=== PATIENT | female | born 1990 | race American Indian/Alaskan Native ===

== ENCOUNTER 2017-02-27 00:41 | Emergency (ER) | payer MEDICAID ==
[2017-02-27 02:28] LABS: Alanine Aminotransferase 14 units/L (7-56); Albumin 4.2 g/dL (3.9-5); Albumin/Globulin Ratio 1.2 %; Alkaline Phosphatase 45 units/L (35-129); Anion Gap 18 mmol/L; Bilirubin,Total 0.3 mg/dL (0.1-1.2); Blood Urea Nitrogen 6 mg/dL (7-17); Calcium 8.8 mg/dL (8.4-10.2); Carbon Dioxide 23 mmol/L (22-30); Chloride 96.6 mmol/L (98-107); Glucose 105 mg/dL (65-100); Lipase 29 units/L (13-60); Potassium 3.9 mmol/L (3.6-5.0); Sodium 134 mmol/L (137-145); Total Protein 7.7 g/dL (6.3-8.2)
[2017-02-27 02:43] LABS: Basophils % (Auto) 0.6 % (0.0-1.8); Eosinophils % (Auto) 0.5 % (0.0-4.3); Hematocrit 39.5 % (30.3-42.9); Hemoglobin 13.3 gm/dl (10.1-14.3); Mean Corpuscular HGB Conc 34 % (30-34); Mean Corpuscular Hemoglobin 30 pg (28-32); Mean Corpuscular Volume 88 fl (79-97); Platelet Count 371 K/mm3 (140-440); Red Blood Count 4.51 M/mm3 (3.65-5.03); Red Cell Distribution Width 13.2 % (13.2-15.2)
[2017-02-27 02:52] LABS: Bilirubin,Urine NEG (Negative); Blood,Urine NEG (Negative); Ketones,Urine NEG (Negative); Leukocyte Esterase,Urine NEG (Negative); Mucus,Urine FEW /HPF; Nitrite,Urine NEG (Negative); Protein,Urine <15 mg/dL mg/dL (Negative); Urobilinogen,Urine < 2.0 mg/dL (<2.0)
--- NOTE | 2017-02-27 07:23 | Emergency Department Report ---
HPI - General Chief Complaint: Abdominal Pain Time Seen by Provider: 02/27/17 06:17 - HPI HPI: His is a 26-year-old Afro-[place]ith[place]ian female who presents to the emergency department with a complaint of abdominal pain from the mid to lower abdomen and some radiation to the back that began last night around midnight. It assisted with some nausea but she denies any vomiting, diarrhea, vaginal bleeding, vaginal discharge, dysuria, fever. She has not taken anything for symptoms prior to presentation. Patient states that she possibly could be . She has a past medical history of migraines, hypertension. She does not have a primary care doctor but goes to [facility] for her [facility]. Her last menstrual cycle was January 18. No recent travel or sick contacts at home. ED Past Medical Hx - Past Medical History Previous Medical History?: Yes Hx Hypertension: Yes (x 2 years) Hx Congestive Heart Failure: No Hx Diabetes: No Hx Deep Vein Thrombosis: No Hx Renal Disease: No (Protenuria d/t pre-eclampsia) Hx Sickle Cell Disease: No Hx Headaches / Migraines: Yes (migraines) Hx Seizures: No Hx Asthma: No Hx COPD: No Hx HIV: No - Surgical History Additional Surgical History: - Social History Smoking Status: Unknown if ever smoked - Medications Home Medications: Home Medications Medication Instructions Recorded Confirmed Last Taken Type Labetalol [Normodyne TAB] 100 mg PO BID #60 tablet 02/27/17 Unknown Rx Vit No.130/Iron/FA 1 each PO QDAY #30 tablet 02/27/17 Unknown Rx [ Tablet] ED Review of Systems ROS: Stated complaint: ABDOMINAL PAIN Other details as noted in HPI Comment: All other systems reviewed and negative Constitutional: denies: chills, fever Eyes: denies: eye pain, eye discharge, vision change ENT: denies: ear pain, throat pain Respiratory: denies: cough, shortness of breath, wheezing Cardiovascular: denies: chest pain, palpitations Gastrointestinal: abdominal pain, nausea. denies: vomiting Genitourinary: denies: urgency, dysuria, discharge Musculoskeletal: denies: back pain, joint swelling, arthralgia Skin: denies: rash, lesions Neurological: denies: headache, weakness, paresthesias Physical Exam - Physical Exam Vital Signs: Vital Signs 02/27/17 02/27/17 02/27/17 01:37 06:05 06:53 Temperature 98.3 F 99 F Pulse Rate 87 99 H Respiratory 18 18 18 Rate Blood Pressure 155/101 Blood Pressure 141/102 [Left] O2 Sat by Pulse 100 100 100 Oximetry Physical Exam: GENERAL: The patient is well-developed well-nourished. HEENT: Normocephalic. Atraumatic. Extraocular motions are intact. Patient has moist mucous membranes. Pupils equal reactive to light bilaterally. NECK: Supple. Trachea is midline. CHEST/LUNGS: Clear to auscultation. There is no respiratory distress noted. HEART/CARDIOVASCULAR: Regular. There is no tachycardia. There is no gallop rub or murmur. ABDOMEN: Abdomen is soft. Mild lower quadrant tenderness to palpation. No guarding rebound tenderness. No peritoneal signs with heel strike. Patient has normal bowel sounds. There is no abdominal distention. SKIN: Skin is warm and dry. NEURO: The patient is awake, alert, and oriented. The patient is cooperative. The patient has no focal neurologic deficits. The patient has normal speech. MUSCULOSKELETAL: There is no tenderness or deformity. There is no limitation range of motion. There is no evidence of acute injury. ED Course Vital Signs 02/27/17 02/27/17 02/27/17 01:37 06:05 06:53 Temperature 98.3 F 99 F Pulse Rate 87 99 H Respiratory 18 18 18 Rate Blood Pressure 155/101 Blood Pressure 141/102 [Left] O2 Sat by Pulse 100 100 100 Oximetry ED Medical Decision Making - Lab Data Result diagrams: 02/27/17 01:51 02/27/17 01:51 - Radiology Data Radiology results: report reviewed Transvaginal/ ultrasound shows a viable single intrauterine at about 6 weeks and 3 days. No acute abnormalities. Normal right ovary. Left ovary not visualized. Mild free fluid in the cul-de-sac. - Medical Decision Making 60 female presents to the emergency department with some lower abdominal discomfort and some nausea without vomiting. Patient found out to be . Beta hCG is about 37,000. Ultrasound shows viable intrauterine at about 6 weeks and 3 days. She has some mild hypertension and a history of preeclampsia. Patient stopped her amlodipine and was started on labetalol. She will go on vitamins. She's been told to follow up with [facility] in the next few days. She will return to the ER with any worsening of her symptoms or any acute distress. No signs of current preeclampsia or help syndrome. - Differential Diagnosis , miscarriage, fibroids, UTI Critical Care Time: No Critical care attestation.: If time is entered above; I have spent that time in minutes in the direct care of this critically ill patient, excluding procedure time. ED Disposition Clinical Impression: Qualifiers: Weeks of gestation: less than 8 weeks Qualified Code(s): Z3A.01 - Less than 8 weeks gestation of Hypertension Qualifiers: Hypertension type: essential hypertension Qualified Code(s): I10 - Essential ( primary) hypertension Abdominal pain Qualifiers: Abdominal location: generalized Qualified Code(s): R10.84 - Generalized abdominal pain Disposition: DISCHARGED TO HOME OR SELFCARE Is pt being admited?: No Condition: Stable Instructions: (ED), Abdominal Pain (ED), Hypertension (ED) Additional Instructions: Please follow-up with [facility] in the next few days. Return to the emergency department with any worsening of your symptoms or any acute distress. You can take Tylenol every 4 hours for discomfort, using weight-based dosing, as needed. I have started you on vitamins. Otherwise do not take any medications that are not prescribed by a physician. Stop the amlodipine. I have started you on labetalol for your blood pressure and history of preeclampsia. BHCG level was 37,460 Prescriptions: Labetalol [Normodyne TAB] 100 mg PO BID #60 tablet Vit No.130/Iron/FA [ Tablet] 1 each PO QDAY #30 tablet Referrals: PRIMARY MD KALEY [Primary Care Provider] - 3-5 Days [facility] [Provider Group] - 3-5 Days Time of Disposition: 09:38
--- NOTE | 2017-02-27 07:30 | Ultrasound Report ---
ULTRASOUND OB LESS THAN 14 WEEKS FETUS ULTRASOUND OB TRANSVAGINAL HISTORY: Abdominal pain during . FINDINGS: Transabdominal and transvaginal ultrasound imaging was performed. The uterus measures 10 x 6 x 6 cm. No uterine mass is appreciated. An intrauterine gestational sac containing a yolk sac and pole is identified. Heart rate measures 115 beats per minute. [place]-rump length measures 19.0 mm which correlates with a 6 week, 3 day . No subchorionic hemorrhage is visualized. The right ovary is unremarkable measuring 3.0 x 1.5 x 2.5 cm. The left ovary is not visualized. Mild free fluid is noted in the cul-de-sac. IMPRESSION: Viable, single intrauterine as outlined above. No acute abnormality is appreciated. Normal right ovary. The left ovary is not visualized. Mild free fluid in the cul-de-sac.
--- NOTE | 2017-02-27 07:30 | Ultrasound Report ---
ULTRASOUND OB LESS THAN 14 WEEKS FETUS ULTRASOUND OB TRANSVAGINAL HISTORY: Abdominal pain during . FINDINGS: Transabdominal and transvaginal ultrasound imaging was performed. The uterus measures 10 x 6 x 6 cm. No uterine mass is appreciated. An intrauterine gestational sac containing a yolk sac and pole is identified. Heart rate measures 115 beats per minute. [place]-rump length measures 19.0 mm which correlates with a 6 week, 3 day . No subchorionic hemorrhage is visualized. The right ovary is unremarkable measuring 3.0 x 1.5 x 2.5 cm. The left ovary is not visualized. Mild free fluid is noted in the cul-de-sac. IMPRESSION: Viable, single intrauterine as outlined above. No acute abnormality is appreciated. Normal right ovary. The left ovary is not visualized. Mild free fluid in the cul-de-sac.
[2017-02-27] MEDS ORDERED: TYLENOL PO ONE (07:56)
[2017-02-27 09:42] VITALS: BP 134/87
== END 2017-02-27 09:51 | disposition home or self-care (01) ==
LOC: ED 00:41
DX: O26.891 Other specified pregnancy related conditions, first trimester (principal); R10.84 Generalized abdominal pain; I10 Essential (primary) hypertension; G43.909 Migraine, unspecified, not intractable, without status migrainosus; Z91.018 Allergy to other foods; Z91.040 Latex allergy status; Z3A.01 Less than 8 weeks gestation of pregnancy
CPT/HCPCS: 36415; 76801; 76817; 80053; 81001; 81025; 83690; 84702; 85025

== ENCOUNTER 2017-07-18 20:16 | Inpatient (IN) | payer MEDICAID ==
[2017-07-18] MEDS: LACTATED RINGERS 1,000 ML IV SCH (20:55)
[2017-07-18] MEDS ORDERED: LACTATED RINGERS 1,000 ML IV ONE (21:00)
[2017-07-18] MEDS ORDERED: MILK OF MAGNESIA PO PRN (21:06)
[2017-07-18] MEDS ORDERED: MAGNESIUM SULFATE 4GM/100ML 4 GM/100 ML BAG IV ONE ×2 (21:06→21:18)
[2017-07-18] MEDS ORDERED: POLYCILLIN/NS 2 GM/100 ML 2 GM/100 ML BAG IV ONE (21:06)
[2017-07-18] MEDS ORDERED: COLACE PO PRN (21:06)
[2017-07-18] MEDS ORDERED: SENOKOT S PO PRN (21:06)
[2017-07-18] MEDS ORDERED: MAGNESIUM SULFATE 40GM/1000ML 40 GM/1,000 ML BAG IV ONE (21:18)
[2017-07-18 21:27] LABS: Bilirubin,Urine NEG (Negative); Blood,Urine NEG (Negative); Ketones,Urine NEG (Negative); Leukocyte Esterase,Urine NEG (Negative); Mucus,Urine FEW /HPF; Nitrite,Urine NEG (Negative); Protein,Urine <15 mg/dL mg/dL (Negative); Urobilinogen,Urine < 2.0 mg/dL (<2.0)
[2017-07-18] MEDS: MAGNESIUM SULFATE 40GM/1000ML 40 GM/1,000 ML BAG IV SCH (21:30)
[2017-07-18] MEDS: APRESOLINE IV PRN (21:45)
[2017-07-18 22:08] LABS: Basophils % (Auto) 0.8 % (0.0-1.8); Eosinophils % (Auto) 0.6 % (0.0-4.3); Hematocrit 33.9 % (30.3-42.9); Hemoglobin 11.7 gm/dl (10.1-14.3); Mean Corpuscular HGB Conc 35 % (30-34); Mean Corpuscular Hemoglobin 30 pg (28-32); Mean Corpuscular Volume 88 fl (79-97); Platelet Count 343 K/mm3 (140-440); Red Blood Count 3.86 M/mm3 (3.65-5.03); Red Cell Distribution Width 12.9 % (13.2-15.2); White Blood Count 7.1 K/mm3 (4.5-11.0)
[2017-07-18 22:27] LABS: Alanine Aminotransferase 13 units/L (7-56); Albumin 3.8 g/dL (3.9-5); Alkaline Phosphatase 49 units/L (35-129); Anion Gap 18 mmol/L; Blood Urea Nitrogen 6 mg/dL (7-17); Calcium 9.3 mg/dL (8.4-10.2); Carbon Dioxide 23 mmol/L (22-30); Chloride 96.7 mmol/L (98-107); Glucose 84 mg/dL (65-100); Lactate Dehydrogenase 207 units/L (91-180); Potassium 3.6 mmol/L (3.6-5.0); Sodium 134 mmol/L (137-145); Total Protein 7.5 g/dL (6.3-8.2)
--- NOTE | 2017-07-18 22:48 | History and Physical Report ---
History of Present Illness Date of examination: 07/18/17 Date of admission: 07/18/17 21:00 Chief complaint: Abdominal pains History of present illness: Pt is a 26yo BF EDC ; EGA 26 4/7 weeks presents to L&D complaining of Abdominal pains. She received care at [facility] but records are not available. She has a history of Chronic hypertension with superimposed preeclampsia with subsequent delivery. In Triage her BP is 174/112 Past History Past Medical History: hypertension Past Surgical History: section Social history: no significant social history - Obstetrical History : 4 Medications and Allergies Allergies Allergy/AdvReac Type Severity Reaction Status Date / Time latex Allergy Swelling Verified 03/18/16 15:11 pineapple [Pineapple] Allergy Swelling Verified 03/18/16 15:11 Home Medications Medication Instructions Recorded Confirmed Last Taken Type Labetalol [Normodyne TAB] 100 mg PO BID #60 tablet 02/27/17 Unknown Rx Vit No.130/Iron/FA 1 each PO QDAY #30 tablet 02/27/17 Unknown Rx [ Tablet] Active Meds: Active Medications Acetaminophen (Tylenol) 650 mg PO Q4H PRN PRN Reason: Pain MILD(1-3)/Fever >100.5/JUAREZ Betamethasone Acet/Betameth SodPhos (Celestone Soluspan) 12 mg IM Q24HR AMINATA Stop: 07/20/17 10:01 Docusate Sodium (Colace) 100 mg PO Q12H PRN PRN Reason: Constipation Hydralazine HCl (Apresoline) 10 mg IV Q30MIN PRN PRN Reason: Blood Pressure >160/100 Last Admin: 07/18/17 21:45 Dose: 10 mg Ampicillin Sodium (Polycillin/Ns 1 Gm/50 Ml) 1 gm in 50 mls @ 100 mls/hr IV Q4HR AMINATA PRN Reason: Protocol Lactated Ringer's (Lactated Ringers) 1,000 mls @ 125 mls/hr IV DIRECT AMINATA Last Admin: 07/18/17 20:55 Dose: 125 mls/hr Magnesium Sulfate (Magnesium Sulfate 40gm/1000ml) 40 gm in 1,000 mls @ 50 mls/ hr IV DIRECT AMINATA PRN Reason: 2 GM/HR Magnesium Hydroxide (Milk Of Magnesia) 30 ml PO QHS PRN PRN Reason: Laxative Effect Multivitamins/Iron/Calcium ( Vitamin) 1 each PO QDAY AMINATA Ondansetron HCl (Zofran) 4 mg IV Q6H PRN PRN Reason: Nausea And Vomiting Senna/Docusate Sodium (Senokot S) 2 tab PO Q12H PRN PRN Reason: Laxative Effect Zolpidem Tartrate (Ambien) 10 mg PO ONCE PRN PRN Reason: Sleep Review of Systems All systems: negative - Vital Signs Vital signs: Vital Signs Pulse BP 90 177/113 07/18/17 20:33 07/18/17 20:33 Temp Pulse Resp BP Pulse Ox 98.3 F 110 H 18 147/105 97 07/18/17 20:55 07/18/17 22:49 07/18/17 20:55 07/18/17 22:26 07/18/17 22:49 - Physical Exam Breasts: Positive: deferred Cardiovascular: Regular rate Lungs: Positive: Clear to auscultation Abdomen: Positive: normal appearance Genitourinary (Female): Positive: normal external genitalia Uterus: Positive: enlarged - Obstetrical FHR: category 1 Results Result Diagrams: 07/18/17 20:55 07/18/17 20:55 Abnormal lab results 07/18/17 07/18/17 Range/Units 20:55 20:55 MCHC 35 H (30-34) % RDW 12.9 L (13.2-15.2) % [place] % (Auto) 8.9 H (0.0-7.3) % Sodium 134 L (137-145) mmol/L Chloride 96.7 L (98-107) mmol/L BUN 6 L (7-17) mg/dL Creatinine 0.3 L (0.7-1.2) mg/dL Lactate Dehydrogenase 207 H (91-180) units/L Albumin 3.8 L (3.9-5) g/dL All other labs normal. Assessment and Plan - Patient Problems (1) 26 weeks gestation of Onset Date: 07/18/17 Current Visit: Yes Status: Acute Plan to address problem: A: IUP @ 26 4/7 weeks Previous C Section Chronic hypertension with Superimposed preeclampsia P: Admit to L&D for further evaluation Will begin IV Magnesium sulfate, IV Hydralazine, IM Celestone and IV Ampicillin Obtain PIH labs, 24 hour urine for protein and Ob U/S for growth Obtain APA and NICU consultation (2) Chronic hypertension complicating or reason for care during childbirth Onset Date: 07/18/17 Current Visit: No Status: Chronic (3) Previous delivery affecting Current Visit: Yes Status: Chronic
[2017-07-18] MEDS: CELESTONE SOLUSPAN IM SCH (23:38)
[2017-07-19] MEDS ORDERED: POLYCILLIN/NS 1 GM/50 ML 1 GM/50 ML BAG IV SCH (01:09)
[2017-07-19] MEDS: APRESOLINE IV PRN ×2 (02:18→20:51)
[2017-07-19] MEDS: AMBIEN PO PRN ×2 (02:19→23:30)
[2017-07-19] MEDS: TYLENOL PO PRN ×2 (02:20→23:30)
--- NOTE | 2017-07-19 07:43 | Ultrasound Report ---
ULTRASOUND BIOPHYSICAL PROFILE: History: Preeclampsia Technique: Transabdominal ultrasound with Doppler interrogation. 2 - breathing movements 2 - movements 2 - posture and tone 2 - Qualitative amniotic fluid volume 8 - TOTAL SCORE OF POSSIBLE 8 Heart Rate (bpm) 147
--- NOTE | 2017-07-19 08:10 | Progress Note ---
Assessment and Plan A: 26-year-old at 26+5 weeks with chronic hypertension r/o superimposed preeclampsia -Cat 1 tracing issues -BPP 8 out of 8 (07/18/17) -on magnesium @ 1.5 g per hour -s/p BMZ # 1 on 07/18/17 @ 23:38 -s/p Prior C/S # 1 -Hx of Pre-E w/ last pregn -Non-compliance w/ meds (has been unable to take her labetalol every 12 hours due to work) P: -Complete 24-hour urine protein collection -Obtain growth scan if no current scan -Await MFM input -Will increase antihypertensive dose if blood pressure persistently in the severe range - Patient Problems (1) 26 weeks gestation of Onset Date: 07/18/17 Current Visit: Yes Status: Acute (2) Chronic hypertension complicating or reason for care during childbirth Onset Date: 07/18/17 Current Visit: No Status: Chronic Subjective - Subjective Date of service: 07/19/17 Principal diagnosis: IUP at 26+5 wks, R/O Superimposed Pre-E Interval history: Patient seen and examined, stable with no new issues. She denies headache, scotomata or epigastric pain; no chest pain or shortness of breath. Blood pressure ranges from 130s to 150s over 70s to 90s since ~ 04:00 am. Denies contractions, vaginal bleeding or loss of fluid. Patient reports: new complaints, no loss of fluid, no vaginal bleeding, no movement normal, no contractions Objective - Vital Signs Vital Signs: Vital Signs - 12hr 07/18/17 07/18/17 07/18/17 20:33 20:34 20:39 Temperature Pulse Rate 90 91 H 90 Respiratory Rate Blood Pressure 177/113 177/103 177/100 Blood Pressure [Right] O2 Sat by Pulse Oximetry 07/18/17 07/18/17 07/18/17 20:44 20:49 20:54 Temperature Pulse Rate 90 100 H 97 H Respiratory Rate Blood Pressure 172/109 168/103 176/114 Blood Pressure [Right] O2 Sat by Pulse Oximetry 07/18/17 07/18/17 07/18/17 20:55 20:59 21:04 Temperature 98.3 F Pulse Rate 94 H Respiratory 18 Rate Blood Pressure 177/103 172/99 Blood Pressure [Right] O2 Sat by Pulse Oximetry 07/18/17 07/18/17 07/18/17 21:09 21:45 21:59 Temperature Pulse Rate 92 H 98 H 109 H Respiratory Rate Blood Pressure 168/96 165/103 Blood Pressure [Right] O2 Sat by Pulse 98 Oximetry 07/18/17 07/18/17 07/18/17 22:04 22:09 22:14 Temperature Pulse Rate 113 H 109 H 110 H Respiratory Rate Blood Pressure Blood Pressure [Right] O2 Sat by Pulse 97 98 98 Oximetry 07/18/17 07/18/17 07/18/17 22:19 22:24 22:26 Temperature Pulse Rate 109 H 109 H 113 H Respiratory Rate Blood Pressure 147/105 Blood Pressure [Right] O2 Sat by Pulse 98 98 Oximetry 07/18/17 07/18/17 07/18/17 22:29 22:34 22:39 Temperature Pulse Rate 111 H 112 H 105 H Respiratory Rate Blood Pressure Blood Pressure [Right] O2 Sat by Pulse 98 98 97 Oximetry 07/18/17 07/18/17 07/18/17 22:44 22:49 22:54 Temperature Pulse Rate 105 H 110 H 108 H Respiratory Rate Blood Pressure Blood Pressure [Right] O2 Sat by Pulse 97 97 97 Oximetry 07/18/17 07/18/17 07/18/17 22:57 22:59 23:04 Temperature Pulse Rate 105 H 111 H 107 H Respiratory Rate Blood Pressure 157/92 Blood Pressure [Right] O2 Sat by Pulse 98 97 Oximetry 07/18/17 07/18/17 07/18/17 23:09 23:14 23:19 Temperature Pulse Rate 112 H 106 H 107 H Respiratory Rate Blood Pressure Blood Pressure [Right] O2 Sat by Pulse 97 98 98 Oximetry 07/18/17 07/18/17 07/18/17 23:24 23:26 23:29 Temperature Pulse Rate 105 H 105 H 103 H Respiratory Rate Blood Pressure 129/74 Blood Pressure [Right] O2 Sat by Pulse 98 98 Oximetry 07/18/17 07/18/17 07/18/17 23:34 23:39 23:44 Temperature Pulse Rate 106 H 106 H 108 H Respiratory Rate Blood Pressure Blood Pressure [Right] O2 Sat by Pulse 98 99 98 Oximetry 07/18/17 07/18/17 07/18/17 23:49 23:54 23:56 Temperature Pulse Rate 103 H 104 H 104 H Respiratory Rate Blood Pressure 140/84 Blood Pressure [Right] O2 Sat by Pulse 98 98 Oximetry 07/18/17 07/19/17 07/19/17 23:59 00:04 00:09 Temperature Pulse Rate 104 H 105 H 103 H Respiratory Rate Blood Pressure Blood Pressure [Right] O2 Sat by Pulse 98 97 98 Oximetry 07/19/17 07/19/17 07/19/17 00:14 00:19 00:24 Temperature Pulse Rate 111 H 106 H 105 H Respiratory Rate Blood Pressure Blood Pressure [Right] O2 Sat by Pulse 99 99 98 Oximetry 07/19/17 07/19/17 07/19/17 00:26 00:27 00:29 Temperature Pulse Rate 102 H 104 H 103 H Respiratory Rate Blood Pressure 155/91 147/92 Blood Pressure [Right] O2 Sat by Pulse 98 Oximetry 07/19/17 07/19/17 07/19/17 00:34 00:39 00:44 Temperature Pulse Rate 106 H 104 H 103 H Respiratory Rate Blood Pressure Blood Pressure [Right] O2 Sat by Pulse 98 98 98 Oximetry 07/19/17 07/19/17 07/19/17 00:49 00:54 00:56 Temperature Pulse Rate 103 H 103 H 115 H Respiratory Rate Blood Pressure 138/85 Blood Pressure [Right] O2 Sat by Pulse 98 98 Oximetry 07/19/17 07/19/17 07/19/17 00:59 01:04 01:09 Temperature Pulse Rate 104 H 104 H 110 H Respiratory Rate Blood Pressure Blood Pressure [Right] O2 Sat by Pulse 98 98 98 Oximetry 07/19/17 07/19/17 07/19/17 01:14 01:19 01:24 Temperature Pulse Rate 110 H 110 H 107 H Respiratory Rate Blood Pressure Blood Pressure [Right] O2 Sat by Pulse 99 98 98 Oximetry 07/19/17 07/19/17 07/19/17 01:29 01:34 01:37 Temperature Pulse Rate 106 H 107 H 104 H Respiratory Rate Blood Pressure 165/101 Blood Pressure [Right] O2 Sat by Pulse 98 98 Oximetry 07/19/17 07/19/17 07/19/17 01:39 01:44 01:49 Temperature Pulse Rate 105 H 109 H 107 H Respiratory Rate Blood Pressure Blood Pressure [Right] O2 Sat by Pulse 98 98 98 Oximetry 09/07/19/17 07/19/17 01:54 01:56 01:59 Temperature Pulse Rate 107 H 105 H 107 H Respiratory Rate Blood Pressure 178/101 Blood Pressure [Right] O2 Sat by Pulse 98 99 Oximetry 07/19/17 07/19/17 07/19/17 02:04 02:08 02:09 Temperature Pulse Rate 112 H 112 H 106 H Respiratory Rate Blood Pressure 172/97 155/89 Blood Pressure [Right] O2 Sat by Pulse 98 99 Oximetry 07/19/17 07/19/17 07/19/17 02:10 02:14 02:18 Temperature Pulse Rate 108 H 107 H 114 H Respiratory Rate Blood Pressure 170/103 170/103 Blood Pressure [Right] O2 Sat by Pulse 98 Oximetry 07/19/17 07/19/17 07/19/17 02:19 02:20 02:24 Temperature Pulse Rate 110 H 113 H Respiratory 14 Rate Blood Pressure Blood Pressure [Right] O2 Sat by Pulse 98 97 Oximetry 07/19/17 07/19/17 07/19/17 02:25 02:29 02:34 Temperature Pulse Rate 112 H 114 H 120 H Respiratory Rate Blood Pressure 153/85 Blood Pressure [Right] O2 Sat by Pulse 97 97 Oximetry 07/19/17 07/19/17 07/19/17 02:39 02:44 02:49 Temperature Pulse Rate 119 H 118 H 118 H Respiratory Rate Blood Pressure Blood Pressure [Right] O2 Sat by Pulse 97 97 97 Oximetry 07/19/17 07/19/17 07/19/17 02:54 02:56 02:59 Temperature Pulse Rate 120 H 120 H 120 H Respiratory Rate Blood Pressure 133/80 Blood Pressure [Right] O2 Sat by Pulse 97 96 Oximetry 07/19/17 07/19/17 07/19/17 03:04 03:09 03:14 Temperature Pulse Rate 120 H 120 H 109 H Respiratory Rate Blood Pressure Blood Pressure [Right] O2 Sat by Pulse 97 97 97 Oximetry 07/19/17 07/19/17 07/19/17 03:19 03:24 03:26 Temperature Pulse Rate 114 H 102 H 79 Respiratory Rate Blood Pressure 110/72 Blood Pressure [Right] O2 Sat by Pulse 97 96 Oximetry 07/19/17 07/19/17 07/19/17 03:29 03:34 03:39 Temperature Pulse Rate 97 H 110 H 111 H Respiratory Rate Blood Pressure Blood Pressure [Right] O2 Sat by Pulse 96 96 96 Oximetry 07/19/17 07/19/17 07/19/17 03:44 03:49 03:54 Temperature Pulse Rate 112 H 111 H 111 H Respiratory Rate Blood Pressure Blood Pressure [Right] O2 Sat by Pulse 96 96 96 Oximetry 07/19/17 07/19/17 07/19/17 03:56 03:59 04:04 Temperature Pulse Rate 110 H 108 H 111 H Respiratory Rate Blood Pressure 126/77 Blood Pressure [Right] O2 Sat by Pulse 96 97 Oximetry 07/19/17 07/19/17 07/19/17 04:09 04:14 04:19 Temperature Pulse Rate 110 H 109 H 109 H Respiratory Rate Blood Pressure Blood Pressure [Right] O2 Sat by Pulse 97 97 96 Oximetry 07/19/17 07/19/17 07/19/17 04:24 04:26 04:29 Temperature Pulse Rate 107 H 107 H 107 H Respiratory Rate Blood Pressure 127/71 Blood Pressure [Right] O2 Sat by Pulse 97 96 Oximetry 07/19/17 07/19/17 07/19/17 04:34 04:39 04:44 Temperature Pulse Rate 109 H 107 H 109 H Respiratory Rate Blood Pressure Blood Pressure [Right] O2 Sat by Pulse 96 97 96 Oximetry 07/19/17 07/19/17 07/19/17 04:49 04:54 04:56 Temperature Pulse Rate 104 H 104 H 115 H Respiratory Rate Blood Pressure 129/92 Blood Pressure [Right] O2 Sat by Pulse 97 96 Oximetry 07/19/17 07/19/17 07/19/17 04:59 05:04 05:09 Temperature Pulse Rate 111 H 107 H 111 H Respiratory Rate Blood Pressure Blood Pressure [Right] O2 Sat by Pulse 97 97 97 Oximetry 07/19/17 07/19/17 07/19/17 05:14 05:19 05:24 Temperature Pulse Rate 103 H 104 H 111 H Respiratory Rate Blood Pressure Blood Pressure [Right] O2 Sat by Pulse 97 97 97 Oximetry 07/19/17 07/19/17 07/19/17 05:26 05:29 05:34 Temperature Pulse Rate 108 H 110 H 104 H Respiratory Rate Blood Pressure 134/86 Blood Pressure [Right] O2 Sat by Pulse 97 98 Oximetry 07/19/17 07/19/17 07/19/17 05:39 05:44 05:47 Temperature Pulse Rate 115 H 104 H 114 H Respiratory Rate Blood Pressure Blood Pressure [Right] O2 Sat by Pulse 94 88 0 L Oximetry 07/19/17 07/19/17 07/19/17 05:49 05:54 05:56 Temperature Pulse Rate 107 H 121 H 105 H Respiratory Rate Blood Pressure 136/85 Blood Pressure [Right] O2 Sat by Pulse 97 98 Oximetry 07/19/17 07/19/17 07/19/17 05:59 06:04 06:09 Temperature Pulse Rate 111 H 108 H 119 H Respiratory Rate Blood Pressure Blood Pressure [Right] O2 Sat by Pulse 97 96 98 Oximetry 07/19/17 07/19/17 07/19/17 06:14 06:19 06:24 Temperature Pulse Rate 108 H 114 H 112 H Respiratory Rate Blood Pressure Blood Pressure [Right] O2 Sat by Pulse 98 97 97 Oximetry 07/19/17 07/19/17 07/19/17 06:26 06:29 06:34 Temperature Pulse Rate 111 H 118 H 115 H Respiratory Rate Blood Pressure 143/87 Blood Pressure [Right] O2 Sat by Pulse 98 98 Oximetry 07/19/17 07/19/17 07/19/17 06:39 06:44 06:49 Temperature Pulse Rate 112 H 109 H 112 H Respiratory Rate Blood Pressure Blood Pressure [Right] O2 Sat by Pulse 98 97 98 Oximetry 07/19/17 07/19/17 07/19/17 06:54 06:59 07:04 Temperature Pulse Rate 105 H 111 H 107 H Respiratory Rate Blood Pressure Blood Pressure [Right] O2 Sat by Pulse 98 99 98 Oximetry 07/19/17 07/19/17 07/19/17 07:09 07:14 07:16 Temperature Pulse Rate 108 H 107 H 105 H Respiratory Rate Blood Pressure 143/94 Blood Pressure [Right] O2 Sat by Pulse 98 98 Oximetry 07/19/17 07/19/17 07/19/17 07:19 07:23 07:24 Temperature 98.0 F Pulse Rate 112 H 113 H 109 H Respiratory 18 Rate Blood Pressure Blood Pressure 149/95 [Right] O2 Sat by Pulse 97 97 98 Oximetry 07/19/17 07/19/17 07/19/17 07:26 07:29 07:34 Temperature Pulse Rate 108 H 112 H 112 H Respiratory Rate Blood Pressure 149/95 Blood Pressure [Right] O2 Sat by Pulse 97 97 Oximetry 07/19/17 07/19/17 07/19/17 07:39 07:44 07:49 Temperature Pulse Rate 113 H 113 H 111 H Respiratory Rate Blood Pressure Blood Pressure [Right] O2 Sat by Pulse 97 98 97 Oximetry 07/19/17 07/19/17 07/19/17 07:54 07:56 07:59 Temperature Pulse Rate 117 H 115 H 120 H Respiratory Rate Blood Pressure 156/97 Blood Pressure [Right] O2 Sat by Pulse 98 98 Oximetry 07/19/17 08:04 Temperature Pulse Rate 114 H Respiratory Rate Blood Pressure Blood Pressure [Right] O2 Sat by Pulse 97 Oximetry - Exam FHR: category 1 - Labs Labs: Abnormal Labs 07/18/17 07/18/17 07/19/17 20:55 20:55 01:05 MCHC 35 H RDW 12.9 L [place] % (Auto) 8.9 H Sodium 134 L Chloride 96.7 L BUN 6 L Creatinine 0.3 L Magnesium 4.50 H Lactate Dehydrogenase 207 H Albumin 3.8 L 07/19/17 06:35 MCHC RDW [place] % (Auto) Sodium Chloride BUN Creatinine Magnesium 5.80 H Lactate Dehydrogenase Albumin Laboratory Results - last 24 hr 07/18/17 07/18/17 07/18/17 20:55 20:55 20:55 WBC 7.1 RBC 3.86 Hgb 11.7 Hct 33.9 MCV 88 MCH 30 MCHC 35 H RDW 12.9 L Plt Count 343 Lymph % (Auto) 21.1 [place] % (Auto) 8.9 H Eos % (Auto) 0.6 Baso % (Auto) 0.8 Lymph # 1.5 [place] # 0.6 Eos # 0.0 Baso # 0.1 Seg Neutrophils % 68.6 Seg Neutrophils # 4.9 Sodium 134 L Potassium 3.6 Chloride 96.7 L Carbon Dioxide 23 Anion Gap 18 BUN 6 L Creatinine 0.3 L Estimated GFR > 60 BUN/Creatinine Ratio 20.00 Glucose 84 Calcium 9.3 Magnesium Total Bilirubin 0.20 AST 15 ALT 13 Alkaline Phosphatase 49 Lactate Dehydrogenase 207 H Total Protein 7.5 Albumin 3.8 L Albumin/Globulin Ratio 1.0 Urine Color Yellow Urine Turbidity Clear Urine pH 6.0 Ur Specific [place] 1.009 Urine Protein <15 mg/dl Urine Glucose (UA) Neg Urine Ketones Neg Urine Blood Neg Urine Nitrite Neg Urine Bilirubin Neg Urine Urobilinogen < 2.0 Ur Leukocyte Esterase Neg Urine WBC (Auto) 1.0 Urine RBC (Auto) 1.0 Urine Mucus Few Blood Type Antibody Screen 07/18/17 07/19/17 07/19/17 20:55 01:05 06:35 WBC RBC Hgb Hct MCV MCH MCHC RDW Plt Count Lymph % (Auto) [place] % (Auto) Eos % (Auto) Baso % (Auto) Lymph # [place] # Eos # Baso # Seg Neutrophils % Seg Neutrophils # Sodium Potassium Chloride Carbon Dioxide Anion Gap BUN Creatinine Estimated GFR BUN/Creatinine Ratio Glucose Calcium Magnesium 4.50 H 5.80 H Total Bilirubin AST ALT Alkaline Phosphatase Lactate Dehydrogenase Total Protein Albumin Albumin/Globulin Ratio Urine Color Urine Turbidity Urine pH Ur Specific [place] Urine Protein Urine Glucose (UA) Urine Ketones Urine Blood Urine Nitrite Urine Bilirubin Urine Urobilinogen Ur Leukocyte Esterase Urine WBC (Auto) Urine RBC (Auto) Urine Mucus Blood Type O POSITIVE Antibody Screen Negative
[2017-07-19] MEDS: LACTATED RINGERS 1,000 ML IV SCH ×2 (08:56→20:46)
[2017-07-19] MEDS ORDERED: CELESTONE SOLUSPAN IM SCH (10:00)
[2017-07-19] MEDS: NORMODYNE PO SCH ×2 (10:06→22:01)
[2017-07-19] MEDS: PRENATAL VITAMIN PO SCH (15:45)
[2017-07-19] MEDS: MAGNESIUM SULFATE 40GM/1000ML 40 GM/1,000 ML BAG IV SCH (20:45)
[2017-07-19] MEDS: CELESTONE SOLUSPAN IM SCH (23:30)
[2017-07-20] MEDS: LACTATED RINGERS 1,000 ML IV SCH (08:15)
[2017-07-20] MEDS: PRENATAL VITAMIN PO SCH (09:38)
[2017-07-20] MEDS: NORMODYNE PO SCH ×2 (09:46→22:36)
--- NOTE | 2017-07-20 12:39 | Consultation ---
History of Present Illness Reason for consult: other (Pt is a 26yo BF EDC 10/20/17; EGA 26 6/7 weeks presented on 07/18/17 to L&D complaining of Abdominal pains. She received care at [facility] [employer]. She has a history of Chronic hypertension with superimposed preeclampsia with subsequent delivery. In Triage her BP was 174/112 mm Hg . 07/20/17 Patient currently on MgSO4 1.5 gm/hr S/P completed BMZ for FLM Upon consultation BP of 136/80 mmHg under Labetalol 200 mg PO BID Denies sxs of superimposed PreEclampsia. Denies VB , ABD pain , LOF. Reports AFM ) Past History Past Medical History: hypertension Past Surgical History: section - Obstetrical History : 4 Medications and Allergies Allergies Allergy/AdvReac Type Severity Reaction Status Date / Time latex Allergy Swelling Verified 03/18/16 15:11 pineapple [Pineapple] Allergy Swelling Verified 03/18/16 15:11 Home Medications Medication Instructions Recorded Confirmed Last Taken Type Labetalol [Normodyne TAB] 100 mg PO BID #60 tablet 02/27/17 07/19/17 07/17/17 10 :00 Rx Vit No.130/Iron/FA 1 each PO QDAY #30 tablet 02/27/17 07/19/17 12:00 Rx [ Tablet] Aspirin EC [Aspirin Enteric Coated 81 mg PO QDAY 07/19/17 07/19/17 07/17/17 12: 00 History TAB] Cholecalciferol (Vitamin D3) 50,000 unit PO QWEEK 07/19/17 07/19/17 07/15/17 12: 00 History [Vitamin D3 10,000 unit] Active Meds: Active Medications Acetaminophen (Tylenol) 650 mg PO Q4H PRN PRN Reason: Pain MILD(1-3)/Fever >100.5/JUAREZ Last Admin: 07/19/17 23:30 Dose: 650 mg Docusate Sodium (Colace) 100 mg PO Q12H PRN PRN Reason: Constipation Last Admin: 07/20/17 08:14 Dose: 100 mg Hydralazine HCl (Apresoline) 10 mg IV Q30MIN PRN PRN Reason: Blood Pressure >160/100 Last Admin: 09/13/17 20:51 Dose: 10 mg Lactated Ringer's (Lactated Ringers) 1,000 mls @ 125 mls/hr IV DIRECT AMINATA Last Admin: 07/20/17 08:15 Dose: 125 mls/hr Magnesium Sulfate (Magnesium Sulfate 40gm/1000ml) 40 gm in 1,000 mls @ 50 mls/ hr IV DIRECT AMINATA PRN Reason: 2 GM/HR Last Admin: 07/19/17 20:45 Dose: 1.5 gm/hr, 37.5 mls/hr Labetalol HCl (Normodyne) 200 mg PO BID [facility] Last Admin: 07/20/17 09:46 Dose: 200 mg Magnesium Hydroxide (Milk Of Magnesia) 30 ml PO QHS PRN PRN Reason: Laxative Effect Multivitamins/Iron/Calcium ( Vitamin) 1 each PO QDAY [facility] Last Admin: 07/20/17 09:38 Dose: 1 each Ondansetron HCl (Zofran) 4 mg IV Q6H PRN PRN Reason: Nausea And Vomiting Senna/Docusate Sodium (Senokot S) 2 tab PO Q12H PRN PRN Reason: Laxative Effect Zolpidem Tartrate (Ambien) 10 mg PO ONCE PRN PRN Reason: Sleep Last Admin: 07/19/17 23:30 Dose: 10 mg Review of Systems Constitutional: no fever Eyes: no blurred vision, no other (scotoma ) Ears, nose, mouth and throat: no headache Cardiovascular: no chest pain, no rapid/irregular heart beat, no edema, no shortness of breath, no leg edema Respiratory: no shortness of breath, no dyspnea on exertion Breasts: deferred Genitourinary: no vaginal bleeding, no vaginal discharge Rectal Exam: deferred Integumentary: no rash Neurological: no weakness, no seizures, no syncope Psychiatric: no depression Endocrine: no polyuria Hematologic/Lymphatic: no easy bruising, no easy bleeding Allergic/Immunologic: no wheezing - Vital Signs Vital signs: Vital Signs Pulse BP 90 177/113 07/18/17 20:33 07/18/17 20:33 Temp Pulse Resp BP Pulse Ox 97.6 F 111 H 18 129/75 96 07/20/17 07:10 07/20/17 12:35 07/20/17 07:10 07/20/17 12:35 07/20/17 11:55 - Physical Exam Breasts: Positive: deferred Cardiovascular: Regular rate Lungs: Positive: Normal air movement Abdomen: Negative: tenderness, guarding Genitourinary (Female): Positive: other (positive urine output ) Uterus: Positive: other (gravid ). Negative: tender Extremities: Positive: edema (trace ) Deep Tendon Reflex Grade: Normal +2 - Obstetrical FHR: category 1 Uterine Contraction Monitor Mode: External Uterine Contraction Pattern: Absent Results Result Diagrams: 07/18/17 20:55 07/18/17 20:55 Abnormal lab results 07/18/17 07/19/17 07/19/17 Range/Units Unknown 12:30 18:35 Magnesium 5.70 H 5.80 H (1.7-2.3) mg/dL Ur Total Protein 24 Hr 540.00 H (2-200) 07/20/17 Range/Units 01:01 Magnesium 5.50 H (1.7-2.3) mg/dL Ur Total Protein 24 Hr (2-200) All other labs normal. Ultrasound: report reviewed (please full [facility] report ) Assessment and Plan A: 26-year-old at 26.6 weeks with chronic hypertension A: -BPP 8 out of 8 -on magnesium @ 1.5 g per hour -s/p completion of BMZ -s/p Prior C/S -Hx of CHTN with super imposed Pre-E w/ last -Her prior PTD was indicated due to her super imposed PreEclampsia -Patient reports non-compliance w/ meds -Nomotensive BP of 136/80 mm HG -No HEAD OF SALES PROMOTION findings -Protein, 24 hr -540 mg/24 hr P: -Document prior24 hour urine protein collection -Ordered OB U/S EFW ,Doppler , MASOUD assessment -Since MgSO was started on 07/18/17 ,may discontinue MgSO -Continue current antihypertensive regimen -Further management based on subsequent BP , labs and U/S. -With concerns kindly call - Dr. Padilla
[2017-07-20] MEDS: TYLENOL PO PRN ×2 (15:24→21:32)
[2017-07-20] MEDS: ZOFRAN IV PRN (21:33)
[2017-07-21] MEDS: AMBIEN PO PRN ×2 (00:04→23:26)
[2017-07-21] MEDS: LACTATED RINGERS 1,000 ML IV SCH (07:32)
--- NOTE | 2017-07-21 08:51 | Ultrasound Report ---
COMPLETE OB ULTRASOUND: Hypertension. Gestation: Stewart Position: Cephalic MASOUD = 18 cm Placenta: Anterior Placental Grade: 2 Heart Rate: 142 BPM Cervical length: 3.6 cm (Normal > 3 cm) BPD: 7.2 cm = 28 w 5 d HC: 25.5 cm = 27 w 5 d AC: 22.5 cm = 26 w 6 d FL: 4.9 cm = 26 w 3 d HC/AC Ratio: 1.1 Cephalic Index: 86.2 Estimated Weight: 997 grams Clinical age = 26 w 6 d EDC: 10/20/17 US Gest. Age = 27 w 3 d EDC: 10/16/17 Impression: Limited anatomic evaluation; No gestational abnormality identified.
--- NOTE | 2017-07-21 08:54 | Ultrasound Report ---
Umbilical cord Doppler imaging: Hypertension. 26 week 6 day gestation. Evaluation of 3 free loops of umbilical cord demonstrates an average systolic to diastolic ratio of 2.6 with a persistent normal waveform. This falls within the 25 percentile range. The average resistive index is 0.62 which falls in the 50% range.
[2017-07-21] MEDS: PRENATAL VITAMIN PO SCH (10:52)
[2017-07-21] MEDS: NORMODYNE PO SCH ×2 (10:52→21:57)
[2017-07-21] MEDS: ZOFRAN IV PRN ×2 (11:01→23:26)
--- NOTE | 2017-07-21 16:18 | Consultation ---
History of Present Illness Reason for consult: other (Pt is a 26yo BF EDC 10/20/17; EGA 27.0 weeks presented on 07/18/17 to L&D complaining of Abdominal pains. She received care at [facility] [employer]. She has a history of Chronic hypertension with superimposed preeclampsia with subsequent delivery. In Triage her BP was 174/112 mm Hg . 07/21/17 S/P MgSO for neuroprotection and BMZ for FLM Upon consultation BP of 123/67 mmHg under Labetalol 200 mg PO BID Denies sxs of superimposed PreEclampsia. Denies VB , ABD pain , LOF. Reports AFM )) Past History Past Medical History: hypertension Past Surgical History: section - Obstetrical History : 4 Medications and Allergies Allergies Allergy/AdvReac Type Severity Reaction Status Date / Time latex Allergy Swelling Verified 03/18/16 15:11 pineapple [Pineapple] Allergy Swelling Verified 03/18/16 15:11 Home Medications Medication Instructions Recorded Confirmed Last Taken Type Labetalol [Normodyne TAB] 100 mg PO BID #60 tablet 02/27/17 07/19/17 07/17/17 10 :00 Rx Vit No.130/Iron/FA 1 each PO QDAY #30 tablet 02/27/17 07/19/17 12:00 Rx [ Tablet] Aspirin EC [Aspirin Enteric Coated 81 mg PO QDAY 07/19/17 07/19/17 07/17/17 12: 00 History TAB] Cholecalciferol (Vitamin D3) 50,000 unit PO QWEEK 07/19/17 07/19/17 07/15/17 12: 00 History [Vitamin D3 10,000 unit] Active Meds: Active Medications Acetaminophen (Tylenol) 650 mg PO Q4H PRN PRN Reason: Pain MILD(1-3)/Fever >100.5/UJAREZ Last Admin: 07/20/17 21:32 Dose: 650 mg Docusate Sodium (Colace) 100 mg PO Q12H PRN PRN Reason: Constipation Last Admin: 07/20/17 08:14 Dose: 100 mg Hydralazine HCl (Apresoline) 10 mg IV Q30MIN PRN PRN Reason: Blood Pressure >160/100 Last Admin: 07/19/17 20:51 Dose: 10 mg Lactated Ringer's (Lactated Ringers) 1,000 mls @ 125 mls/hr IV DIRECT [facility] Last Admin: 07/21/17 07:32 Dose: 125 mls/hr Labetalol HCl (Normodyne) 200 mg PO BID [facility] Last Admin: 07/21/17 10:52 Dose: 200 mg Magnesium Hydroxide (Milk Of Magnesia) 30 ml PO QHS PRN PRN Reason: Laxative Effect Multivitamins/Iron/Calcium ( Vitamin) 1 each PO QDAY [facility] Last Admin: 07/21/17 10:52 Dose: 1 each Ondansetron HCl (Zofran) 4 mg IV Q6H PRN PRN Reason: Nausea And Vomiting Last Admin: 07/21/17 11:01 Dose: 4 mg Senna/Docusate Sodium (Senokot S) 2 tab PO Q12H PRN PRN Reason: Laxative Effect Last Admin: 07/21/17 13:53 Dose: 2 tab Zolpidem Tartrate (Ambien) 10 mg PO ONCE PRN PRN Reason: Sleep Last Admin: 07/21/17 00:04 Dose: 10 mg Review of Systems Constitutional: no fever Eyes: no photophobia, no other (scotoma) Cardiovascular: other (CHTN under medical regimen ), no rapid/irregular heart beat, no syncope, no lightheadedness, no shortness of breath Respiratory: no shortness of breath Gastrointestinal: no vomiting, no diarrhea, no indigestion Genitourinary: no vaginal bleeding, no vaginal discharge, no leakage of fluid, no dysuria, no pelvic pain Rectal Exam: deferred Musculoskeletal: no low back pain Integumentary: no rash Neurological: no seizures, no syncope, no headaches Psychiatric: no depression Hematologic/Lymphatic: no easy bruising, no easy bleeding Allergic/Immunologic: no wheezing - Vital Signs Vital signs: Vital Signs Pulse BP 90 177/113 07/18/17 20:33 07/18/17 20:33 Temp Pulse Resp BP Pulse Ox 98.5 F 85 20 131/78 91 07/21/17 12:50 07/21/17 16:04 07/21/17 12:50 07/21/17 16:04 07/21/17 09:00 - Physical Exam Breasts: Positive: deferred Cardiovascular: Regular rate Lungs: Positive: Normal air movement Abdomen: Negative: tenderness, guarding Uterus: Negative: tender Extremities: Positive: edema (trace ) Deep Tendon Reflex Grade: Normal +2 - Obstetrical FHR: category 1 Uterine Contraction Monitor Mode: External (non traced per hotel staff member) Uterine Contraction Pattern: Absent Results Result Diagrams: 07/18/17 20:55 07/18/17 20:55 All other labs normal. Ultrasound: report reviewed (see report in system for full report. 26.6weeks AUA 27.3 weeks EFW -997 grams MASOUD WNL normal Reassuring Doppler ) Assessment and Plan A: 26-year-old at 27.0 weeks with chronic hypertension A: -BPP 8 out of 8 -Reassuring growth assessment and Doppler -s/p completion of BMZ and MgSO4 -s/p Prior C/S -Hx of CHTN with super imposed Pre-E w/ last -Her prior PTD was indicated due to her super imposed PreEclampsia -Patient reports previous non-compliance w/ meds -Nomotensive BP of 123/67 mm HG -No CHAIN REPAIRER findings -Protein, 24 hr -540 mg/24 hr P: -Document prior24 hour urine protein collection -Continue current antihypertensive regimen -Consider D/C home with close supervision with [facility] ( twice weekly)and OB care with no maternal / compromise, stable BP, and reassuring tracing -With concerns kindly call - Dr. Padilla
[2017-07-21] MEDS: TYLENOL PO PRN (17:25)
--- NOTE | 2017-07-22 09:29 | Progress Note ---
Assessment and Plan A: 26-year-old at 27+1 weeks with Superimposed preeclampsiaon CHTN -Cat 1 tracing issues -24 hr Urine protein is 540 mg (07/18/17) -Neg HELLP labs (07/18/17) -BPP 8 out of 8 (07/18/17) -Reassuring growth assessment and Doppler -s/p Mag -s/p BMZ # 2 on 07/19/17 -s/p Prior C/S # 1 -Hx of Pre-E w/ last pregn -Non-compliance w/ meds (has been unable to take her labetalol every 12 hours due to work) -Oral history of normal glucose testing in the office P: -[facility] consultation review, thanks -Will discharge home at this time -Follow-up at [facility] office and primary care physician next week -Stressed need to be compliant with her medication - Patient Problems (1) 27 weeks gestation of Current Visit: Yes Status: Acute (2) Pre-eclampsia superimposed on chronic hypertension, antepartum Current Visit: Yes Status: Acute (3) Chronic hypertension complicating or reason for care during childbirth Onset Date: 07/18/17 Current Visit: No Status: Chronic Subjective - Subjective Date of service: 07/22/17 Principal diagnosis: IUP at 27+1 wks, R/O Superimposed Pre-E Interval history: Patient seen and examined, stable with no new issues. She denies headache, scotomata or epigastric pain; no chest pain or shortness of breath. Blood pressure ranges from 110s to 120s over 60s to 80s since ~ 04:00 am. Denies contractions, vaginal bleeding or loss of fluid. Patient reports: new complaints, no loss of fluid, no vaginal bleeding, no movement normal, no contractions Objective - Vital Signs Vital Signs: Vital Signs - 12hr 07/21/17 07/21/17 07/21/17 21:44 21:57 22:03 Temperature Pulse Rate 93 H 92 H 115 H Respiratory Rate Blood Pressure 126/70 126/70 O2 Sat by Pulse 97 Oximetry 07/21/17 07/21/17 07/21/17 22:08 22:13 22:18 Temperature Pulse Rate 94 H 93 H 108 H Respiratory Rate Blood Pressure 126/79 O2 Sat by Pulse 98 98 98 Oximetry 07/21/17 07/21/17 07/21/17 22:23 22:44 22:49 Temperature Pulse Rate 111 H 97 H 95 H Respiratory Rate Blood Pressure O2 Sat by Pulse 99 98 98 Oximetry 07/21/17 07/22/17 07/22/17 23:43 00:05 02:43 Temperature Pulse Rate 96 H 98 H Respiratory 18 Rate Blood Pressure 127/76 108/62 O2 Sat by Pulse Oximetry 07/22/17 07/22/17 07/22/17 03:13 03:43 04:05 Temperature 98.2 F Pulse Rate 100 H 96 H Respiratory Rate Blood Pressure 117/69 122/71 O2 Sat by Pulse Oximetry 07/22/17 07/22/17 07/22/17 04:13 04:43 05:13 Temperature Pulse Rate 111 H 96 H 102 H Respiratory Rate Blood Pressure 126/87 116/71 139/87 O2 Sat by Pulse Oximetry 07/22/17 07/22/17 07/22/17 05:43 06:13 06:43 Temperature Pulse Rate 97 H 93 H 93 H Respiratory Rate Blood Pressure 124/84 119/83 121/80 O2 Sat by Pulse Oximetry 07/22/17 07/22/17 07/22/17 07:13 09:13 09:25 Temperature Pulse Rate 100 H 93 H 91 H Respiratory Rate Blood Pressure 110/72 111/55 O2 Sat by Pulse 97 Oximetry - Exam Cardiovascular: Regular rate, Normal S1, Normal S2 Lungs: Clear to auscultation, Normal air movement Abdomen: Present: normal appearance, soft. Absent: distention, tenderness, guarding, rigidity Uterus: Absent: tenderness FHR: category 1 - Labs Labs: Abnormal Labs 07/18/17 07/18/17 07/18/17 20:55 20:55 Unknown MCHC 35 H RDW 12.9 L Callahan % (Auto) 8.9 H Sodium 134 L Chloride 96.7 L BUN 6 L Creatinine 0.3 L Magnesium Lactate Dehydrogenase 207 H Albumin 3.8 L Ur Total Protein 24 Hr 540.00 H 07/19/17 07/19/17 07/19/17 01:05 06:35 12:30 MCHC RDW Callahan % (Auto) Sodium Chloride BUN Creatinine Magnesium 4.50 H 5.80 H 5.70 H Lactate Dehydrogenase Albumin Ur Total Protein 24 Hr 07/19/17 07/20/17 18:35 01:01 MCHC RDW Callahan % (Auto) Sodium Chloride BUN Creatinine Magnesium 5.80 H 5.50 H Lactate Dehydrogenase Albumin Ur Total Protein 24 Hr
--- NOTE | 2017-07-22 09:38 | Discharge Summary ---
Providers - Providers Date of Admission: 07/18/17 21:00 Date of discharge: 07/22/17 Attending physician: HOANG RIVERS MD 07/18/17 21:06 Consult to Physician [CONS] Routine Consulting Provider: JANE ORR Reason For Exam: Preeclampsia Place consult to:: [facility] Notified:: yes Phone number called:: [phone] Was contact made?: Yes If yes, spoke with:: Marisela Time called:: 21:13 Primary care physician: HOANG RIVERS MD Hospitalization Reason for admission: IUP - (27 weeks), observation Discharge diagnosis: other (IUP at 27+1 weeks with superimposed preeclampsia on chronic hypertension) Hospital course: Pt is a 26yo BF EDC 10/20/17; EGA 27.0 weeks presented on 07/18/17 to L& D complaining of Abdominal pains. She received care at [facility]. She has a history of Chronic hypertension with superimposed preeclampsia with subsequent delivery. In Triage her BP was 174/112 mm Hg . 07/21/17 S/P MgSO for neuroprotection and BMZ for FLM Upon consultation BP of 123/67 mmHg under Labetalol 200 mg PO BID Denies sxs of superimposed PreEclampsia. Denies VB , ABD pain , LOF. Reports AFM A: 26-year-old at 27+1 weeks with Superimposed preeclampsiaon CHTN -Cat 1 tracing issues -24 hr Urine protein is 540 mg (07/18/17) -Neg HELLP labs (07/18/17) -BPP 8 out of 8 (07/18/17) -Reassuring growth assessment and Doppler (EFW 997 g on 07/18/17) -s/p Mag -s/p BMZ # 2 on 07/19/17 -s/p Prior C/S # 1 -Hx of Pre-E w/ last pregn -Non-compliance w/ meds (has been unable to take her labetalol every 12 hours due to work) -Oral history of normal glucose testing in the office She seen on the a.m. of 07/22/2017, asymptomatic for PE and eager for discharge. Emphasized need to be compliant with both her medication and visits to the [facility] and primary care physicians. Condition at discharge: Good Disposition: [id number] TO HOME OR SELFCARE - Discharge Diagnoses (1) 27 weeks gestation of Status: Acute (2) Pre-eclampsia superimposed on chronic hypertension, antepartum Status: Acute (3) Chronic hypertension complicating or reason for care during childbirth Status: Chronic Plan - Discharge Medications Prescriptions: Labetalol [Normodyne TAB] 200 mg PO BID #60 tablet - Provider Discharge Summary Activity: no heavy lifting 4 weeks, no strenuous exercise Diet: routine Instructions: other (keep you appointments and be compliant with medication use) Additional instructions: [] Smoking cessation referral if applicable(refer to patient education folder for contact #) [] Refer to [facility]'s [facility] Booklet Call your doctor immediately for: * Fever > 100.5 * Heavy vaginal bleeding ( >1 pad per hour) * Severe persistent headache * Shortness of breath * Reddened, hot, painful area to leg or breast * Drainage or odor from incision. * Keep incision clean and dry at all times and follow doctor's instructions regarding bathing/showering Call clinic or hospital for severe headache, epigastric pain or visual symptoms - Follow up plan Follow up: JANE ORR MD [Staff Physician] - 3 Days MARTÍNEZ LEONARD MD [Staff Physician] - 7 Days [facility] HOANG CABALLERO MD [Primary Care Provider] - 7 Days
[2017-07-22] MEDS: PRENATAL VITAMIN PO SCH (10:20)
[2017-07-22] MEDS: NORMODYNE PO SCH (10:20)
[2017-07-22 10:24] VITALS: BP 113/72
--- NOTE | 2017-07-22 13:01 | Progress Note ---
Subjective - Subjective Date of service: 07/21/17 Principal diagnosis: IUP at 27+1 wks, R/O Superimposed Pre-E Interval history: This is a late entry note by Dr. Garcia for 07/21/17. Patient is a 26-year-old female 4 para 3003, EDC 10/20/2017 who is today at 26 weeks and 6 days gestation, admitted for elevated blood pressure and abdominal pain on July 18. She has a history of chronic hypertension and was on labetalol 100 mg PO twice a day. She has not been compliant with this medication. She also has a history of superimposed preeclampsia in her prior which ended up with a delivery. On admission, her blood pressure was 174/115. At that time, she was given IV hydralazine 10 mg which brought the blood pressure to 136/82. She was admitted and loaded with magnesium sulfate 4 g and maintained on regiment of 1.5 g/h. Her labetolol dose was increased to 200 mg BID. She was given betamethasone for lung maturity, first dose was given at 11 PM on the night of admission and second dose on 07/19. IV ampicillin was given. A 24-hour urine was started and resulted next day with a protein of 540 g. The baby has been stable with category 1 tracing throughout the admission and a normal biophysical profile on July 19. MFM consult from [facility] was done. Magnesium sulfate was discontinued after 24 hours as per [facility]. I saw the patient on the morning of 07/21/2017. She was lying comfortably in bed. She denied any headache, visual changes or right upper quadrant pain. She denied any contractions, fluid leakage or bleeding per vagina. She reported good movement. Physical exam General: no acute distress. AAOriented 3. Vitals: T 97.5F, blood pressure 137/85, pulse 93. Abdomen:soft, nontender, gravid. No palpable contractions. Vaginal exam: deferred. Extremities: +1 edema, no calf tenderness, no Homans sign. heart: in the 140s beats per minute by Doppler. Labs: Hb: 11.7, Hct: 33.9. Toxemia labs: AST 15, AST 13, LDH 207, BUN 6, creatinine 0.3. Assessment: 26 years old with SIUP at 26 and 6 days gestation with superimposed preeclampsia on chronic hypertension. She received magnesium sulfate for 24 hours and betamethasone was completed on July 19. Her BP has been stable. She is not in labor. Plan: 1. Will continue and toco monitoring. 2. Continue BP monitoring and PO labetalol twice a day. 3. Will follow up growth scan. 4. Low-sodium diet Patient reports: new complaints, no loss of fluid, no vaginal bleeding, no movement normal, no contractions Objective - Vital Signs Vital Signs: Vital Signs - 12hr 07/22/17 07/22/17 07/22/17 02:43 03:13 03:43 Temperature Pulse Rate 98 H 100 H 96 H Respiratory Rate Blood Pressure 108/62 117/69 122/71 Blood Pressure [Right] O2 Sat by Pulse Oximetry 07/22/17 07/22/17 07/22/17 04:05 04:13 04:43 Temperature 98.2 F Pulse Rate 111 H 96 H Respiratory Rate Blood Pressure 126/87 116/71 Blood Pressure [Right] O2 Sat by Pulse Oximetry 07/22/17 07/22/17 07/22/17 05:13 05:43 06:13 Temperature Pulse Rate 102 H 97 H 93 H Respiratory Rate Blood Pressure 139/87 124/84 119/83 Blood Pressure [Right] O2 Sat by Pulse Oximetry 07/22/17 07/22/17 07/22/17 06:43 07:13 09:13 Temperature Pulse Rate 93 H 100 H 93 H Respiratory Rate Blood Pressure 121/80 110/72 111/55 Blood Pressure [Right] O2 Sat by Pulse Oximetry 07/22/17 07/22/17 07/22/17 09:20 09:25 09:30 Temperature 97.2 F L Pulse Rate 93 H 91 H 102 H Respiratory 16 Rate Blood Pressure Blood Pressure 124/84 [Right] O2 Sat by Pulse 98 97 99 Oximetry 07/22/17 07/22/17 07/22/17 09:32 10:20 10:27 Temperature Pulse Rate 94 H 94 H 94 H Respiratory Rate Blood Pressure 124/84 113/72 113/72 Blood Pressure [Right] O2 Sat by Pulse Oximetry - Labs Labs: Abnormal Labs 07/18/17 07/18/17 07/18/17 20:55 20:55 Unknown MCHC 35 H RDW 12.9 L Mclennan % (Auto) 8.9 H Sodium 134 L Chloride 96.7 L BUN 6 L Creatinine 0.3 L Magnesium Lactate Dehydrogenase 207 H Albumin 3.8 L Ur Total Protein 24 Hr 540.00 H 07/19/17 07/19/17 07/19/17 01:05 06:35 12:30 MCHC RDW Mclennan % (Auto) Sodium Chloride BUN Creatinine Magnesium 4.50 H 5.80 H 5.70 H Lactate Dehydrogenase Albumin Ur Total Protein 24 Hr 07/19/17 07/20/17 18:35 01:01 MCHC RDW Mclennan % (Auto) Sodium Chloride BUN Creatinine Magnesium 5.80 H 5.50 H Lactate Dehydrogenase Albumin Ur Total Protein 24 Hr
== END 2017-07-22 12:15 | disposition home or self-care (01) | DRG 781 ==
LOC: TRG 20:16 → OBSVTOIN 21:00 → LD 21:00
PROVIDERS: ADMIT Obstetrics & Gynecology; ATTEND Obstetrics & Gynecology
DX: O11.2 Pre-existing hypertension with pre-eclampsia, second trimester (principal); O34.211 Maternal care for low transverse scar from previous cesarean delivery; Z91.040 Latex allergy status; Z3A.26 26 weeks gestation of pregnancy; Z91.018 Allergy to other foods
CPT/HCPCS: 36415; 76816; 76819; 76820; 80053; 81001; 83615; 83735; 84156; 85025; 86850; 86900; 86901; J0290; J0360; J0702; J2405; J3475; J7120

== ENCOUNTER 2017-09-18 21:04 | Outpatient (CLI) | payer MEDICAID ==
[2017-09-18] MEDS ORDERED: LACTATED RINGERS 1,000 ML ONE (22:10)
[2017-09-18] MEDS ORDERED: LACTATED RINGERS 500 ML IV ONE (23:49)
[2017-09-19] MEDS ORDERED: NORMODYNE PO ONE (00:17)
[2017-09-19 00:37] LABS: Hemoglobin 11.2 gm/dl (10.1-14.3); Mean Corpuscular HGB Conc 34 % (30-34); Mean Corpuscular Hemoglobin 30 pg (28-32); Mean Corpuscular Volume 89 fl (79-97); Platelet Count 335 K/mm3 (140-440); Red Blood Count 3.73 M/mm3 (3.65-5.03); Red Cell Distribution Width 13.7 % (13.2-15.2); White Blood Count 8.3 K/mm3 (4.5-11.0)
[2017-09-19 00:42] LABS: Bilirubin,Urine NEG (Negative); Blood,Urine NEG (Negative); Ketones,Urine NEG (Negative); Leukocyte Esterase,Urine NEG (Negative); Mucus,Urine FEW /HPF; Nitrite,Urine NEG (Negative); Protein,Urine <15 mg/dL mg/dL (Negative); Urobilinogen,Urine < 2.0 mg/dL (<2.0)
[2017-09-19 00:43] LABS: Alanine Aminotransferase 10 units/L (7-56)
[2017-09-19 02:27] VITALS: BP 139/84
[2017-09-19 02:34] LABS: Lactate Dehydrogenase 179 units/L (91-180); Uric Acid 3.7 mg/dL (3.5-7.6)
== END 2017-09-19 03:05 | disposition home or self-care (01) ==
LOC: TRG 21:04 → LD 21:25 → TRG 09-19 03:05
PROVIDERS: ATTEND Obstetrics & Gynecology
DX: O62.9 Abnormality of forces of labor, unspecified (principal); O26.893 Other specified pregnancy related conditions, third trimester; R52 Pain, unspecified; Z3A.35 35 weeks gestation of pregnancy
CPT/HCPCS: 36415; 81001; 82565; 83615; 84450; 84460; 84550; 85027; 96360; J7120

== ENCOUNTER 2017-09-23 21:08 | Outpatient (CLI) | payer MEDICAID ==
[2017-09-23 22:21] VITALS: BP 131/80
== END 2017-09-23 22:20 | disposition home or self-care (01) ==
LOC: TRG 21:08
PROVIDERS: ATTEND Obstetrics & Gynecology
DX: O26.893 Other specified pregnancy related conditions, third trimester (principal); R53.1 Weakness; O62.9 Abnormality of forces of labor, unspecified; Z3A.36 36 weeks gestation of pregnancy

== ENCOUNTER 2017-10-03 12:27 | Outpatient (CLI) | payer MEDICAID ==
[2017-10-03] MEDS ORDERED: NORMODYNE PO ONE (14:00)
[2017-10-03 14:42] LABS: Bilirubin,Urine NEG (Negative); Blood,Urine NEG (Negative); Ketones,Urine NEG (Negative); Leukocyte Esterase,Urine NEG (Negative); Mucus,Urine FEW /HPF; Nitrite,Urine NEG (Negative); Protein,Urine <15 mg/dL mg/dL (Negative); RBC,Urine < 1.0 /HPF (0.0-6.0); Urobilinogen,Urine < 2.0 mg/dL (<2.0); WBC,Urine < 1.0 /HPF (0.0-6.0)
[2017-10-03] MEDS ORDERED: BRETHINE IVP ONE (15:38)
[2017-10-03] MEDS ORDERED: LACTATED RINGERS 1,000 ML IV SCH (16:00)
[2017-10-03 17:17] VITALS: BP 147/87
== END 2017-10-03 17:35 | disposition home or self-care (01) ==
LOC: TRG 12:27
PROVIDERS: ATTEND Obstetrics & Gynecology
DX: Z34.93 Encounter for supervision of normal pregnancy, unspecified, third trimester (principal); Z3A.37 37 weeks gestation of pregnancy
CPT/HCPCS: 59025; 81001; 96360; 96372; J3105; J7120

== ENCOUNTER 2017-10-06 14:49 | Outpatient (CLI) | payer MEDICAID ==
[2017-10-06] MEDS ORDERED: NORMODYNE PO ONE (20:14)
[2017-10-06 22:00] LABS: Basophils % (Auto) 0.3 % (0.0-1.8); Eosinophils % (Auto) 0.2 % (0.0-4.3); Hematocrit 31.9 % (30.3-42.9); Hemoglobin 10.8 gm/dl (10.1-14.3); Mean Corpuscular HGB Conc 34 % (30-34); Mean Corpuscular Hemoglobin 30 pg (28-32); Mean Corpuscular Volume 88 fl (79-97); Platelet Count 308 K/mm3 (140-440); Red Cell Distribution Width 13.9 % (13.2-15.2); White Blood Count 6.8 K/mm3 (4.5-11.0)
[2017-10-06 22:28] LABS: BUN/Creatinine Ratio 18; Blood Urea Nitrogen 7 mg/dL (7-17); Calcium 9.1 mg/dL (8.4-10.2); Carbon Dioxide 19 mmol/L (22-30); Glucose 62 mg/dL (65-100)
[2017-10-06 22:29] LABS: Alanine Aminotransferase 12 units/L (7-56); Albumin 3.7 g/dL (3.9-5); Albumin/Globulin Ratio 1.3 %; Alkaline Phosphatase 81 units/L (35-129); Anion Gap 20 mmol/L; Chloride 100.1 mmol/L (98-107); Potassium 4.2 mmol/L (3.6-5.0); Sodium 135 mmol/L (137-145); Total Protein 6.6 g/dL (6.3-8.2)
[2017-10-07 00:03] VITALS: BP 132/76
--- NOTE | 2017-10-07 00:39 | Ultrasound Report ---
FINAL REPORT EXAM: US OB BPP WO NON-STRESS, US OB LIMITED HISTORY: Variable FHR deceleration, MASOUD. TECHNIQUE: Directed limited ultrasound examination of the gravid pelvis was performed. No prior studies are available for comparison. FINDINGS: By report, there is approximately 38 week gestation. There is a single live intrauterine gestation in the cephalic presentation. cardiac activity is identified, with a heart rate of 143-146 beats per minute. The amniotic fluid index measures 9.4 cm, within normal limits. The biophysical profile is 8/8. IMPRESSION: 1. Amniotic fluid index = 9.4 cm, within normal limits. 2. Biophysical profile 8/8.
--- NOTE | 2017-10-07 15:11 | Event Note ---
Date: 10/07/17 Late entry for 10/06/17: 26 year old presented to L&D triage at 38 weeks gestation to rule out labor. After several hours, cervix had not changed (2.5 cm /70%/-2) and it was determined that patient was not in labor. Patient denied leaking of fluid or vaginal bleeding. NST was reactive but had one variable FHR deceleration. BPP was 8/8. BP was initially elevated; patient has chronic hypertension and takes Labetalol BID. Preeclamptic labs were negative and BPs decreased after pt. took her evening dose of Labetalol. Dr. Barber consulted and gave OK to discharge patient to home. Warning signs of late , BP warning signs, signs of labor, and daily movement counting discussed with patient. Advised pt. to follow up at [facility] on 10/09/17 to discuss scheduling date for delivery this week due to chronic hypertension. Pt. voiced understanding of all instructions.
== END 2017-10-07 00:08 | disposition home or self-care (01) ==
LOC: TRG 14:49
PROVIDERS: ATTEND Obstetrics & Gynecology
DX: O10.913 Unspecified pre-existing hypertension complicating pregnancy, third trimester (principal); O47.1 False labor at or after 37 completed weeks of gestation; Z3A.38 38 weeks gestation of pregnancy
CPT/HCPCS: 36415; 76815; 76819; 80053; 85025